=== PATIENT | male | born 1955 | race Two or more races ===

== ENCOUNTER 2017-06-12 11:16 | Emergency (ER) | payer OTHER ==
[~2017-06-12] VITALS: Ht 165.1 cm; Wt 74.8 kg
--- NOTE | 2017-06-12 11:40 | NUR ---
PT AMBULATORY TO ER BED 14. HERE FOR LOW BACK PAIN. DENIES ANY RECENT INJURY. ALSO C/O NOSEBLEED YESTERDAY. NO ACTIVE BLEEDING. VSS. AWAITING MD FLORES.
--- NOTE | 2017-06-12 12:03 | NUR ---
DR WHITAKER AT BEDSIDE FOR EVAL.
[2017-06-12 12:23] LABS: BASOPHILS % (AUTO) 0.5 % (0.0-2.0); EOSINOPHILS # (AUTO) 0.1 /CMM (0.0-0.7); EOSINOPHILS % (AUTO) 2.1 % (0.0-6.0); HEMATOCRIT 35 % (39-51); HEMOGLOBIN 11.7 g/dL (13.5-17.5); LYMPHOCYTES # (AUTO) 1.5 /CMM (0.8-4.8); LYMPHOCYTES % (AUTO) 20.7 % (20.0-44.0); MEAN CORPUSCULAR HEMOGLOBIN 30 PG (26.0-33.0); MEAN CORPUSCULAR HGB CONC 34 g/dl (31.0-36.0); MEAN CORPUSCULAR VOLUME 90 fL (80-96); MONOCYTES # (AUTO) 0.7 /CMM (0.1-1.30); MONOCYTES % (AUTO) 10.4 % (2.0-12.0); NEUTROPHILS # (AUTO) 4.7 /CMM (1.8-8.9); NEUTROPHILS % (AUTO) 66.3 % (43.0-81.0); PLATELET COUNT (AUTO) 280 /CMM (150-450); RED BLOOD CELL COUNT(AUTO) 3.86 MIL/uL (4.5-6.0)
[2017-06-12] MEDS ORDERED: ACETAMINOPHEN ES 500 MG TABLET PO ONE (12:30)
[2017-06-12 12:34] LABS: INR 0.89 (0.87-1.13)
[2017-06-12] MEDS ORDERED: ACETAMINOPHEN ES 500 MG TABLET ONE (13:13)
--- NOTE | 2017-06-12 13:22 | NUR ---
Patient discharged to home in stable condition. Written and verbal after care instructions given. Patient verbalizes understanding of instruction.
[2017-06-12 13:25] VITALS: BP 142/76
== END 2017-06-12 13:26 | disposition home or self-care (01) ==
LOC: ER 11:17
DX: R04.0 Epistaxis (principal); M54.5 Low back pain
CPT/HCPCS: 36415; 72110-TC; 85025-TC; 85730-TC

== ENCOUNTER 2024-07-04 16:13 | Emergency (ER) | payer OTHER ==
[~2024-07-04] VITALS: Ht 165.1 cm; Wt 74.4 kg
[2024-07-04] MEDS ORDERED: ASPIRIN 325 MG TABLET ONE (16:34)
[2024-07-04] MEDS: ASPIRIN 325 MG TABLET PO ONE (16:36)
[2024-07-04 16:50] LABS: BASOPHILS # (AUTO) 0.1 K/uL (0.0-0.2); BASOPHILS % (AUTO) 0.6 % (0.0-2.0); EOSINOPHILS # (AUTO) 0.1 K/uL (0.0-0.7); EOSINOPHILS % (AUTO) 0.8 % (0.0-6.0); HEMATOCRIT 47 % (39-51); HEMOGLOBIN 16.4 g/dL (13.5-17.5); LYMPHOCYTES % (AUTO) 19.1 % (20.0-44.0); MEAN CORPUSCULAR HEMOGLOBIN 35 PG (26.0-33.0); MEAN CORPUSCULAR HGB CONC 35 g/dl (31.0-36.0); MEAN CORPUSCULAR VOLUME 102 fL (80-96); MONOCYTES # (AUTO) 1.2 K/uL (0.1-1.30); NEUTROPHILS # (AUTO) 7.2 K/uL (1.8-8.9); NEUTROPHILS % (AUTO) 68.5 % (43.0-81.0); PLATELET COUNT (AUTO) 192 K/uL (150-450); RED BLOOD CELL COUNT(AUTO) 4.63 MIL/uL (4.5-6.0); WHITE BLOOD COUNT (AUTO) 10.5 K/uL (4.3-11.0)
[2024-07-04 16:53] LABS: CALCIUM, SERUM 9.5 mg/dL (8.5-10.1); CARBON DIOXIDE 29 mmol/L (21-32); CHLORIDE 95 mmol/L (98-107); CREATININE 1.3 mg/dL (0.6-1.3); GLUCOSE 248 mg/dL (74-106); POTASSIUM 3.5 mmol/L (3.5-5.1); SODIUM SERUM 134 mmol/L (136-145); UREA NITROGEN, BLOOD 11 mg/dL (7-18)
[2024-07-04] MEDS ORDERED: GLIP5TAB13 PO (17:08)
[2024-07-04] MEDS ORDERED: BLOO-668 IN (17:08)
[2024-07-04] MEDS ORDERED: METOPROLOL TARTRATE 50 MG TABLET PO SCH (18:00)
[2024-07-04] MEDS ORDERED: ASPIRIN 81 MG TAB.CHEW PO SCH (18:00)
[2024-07-04] MEDS ORDERED: PANTOPRAZOLE 40 MG TABLET.DR PO SCH (18:00)
[2024-07-04] MEDS ORDERED: ATORVASTATIN 40 MG TABLET PO SCH (18:00)
[2024-07-04] MEDS ORDERED: ENOXAPARIN SODIUM 80 MG/0.8 ML DISP.SYRIN SQ ONE (18:07)
[2024-07-04] MEDS: ENOXAPARIN SODIUM 80 MG/0.8 ML DISP.SYRIN SQ ONE (18:12)
[2024-07-04 18:41] VITALS: TEMP 98
[2024-07-04 22:00] VITALS: BP 112/65; O2SAT 97
[2024-07-05] MEDS ORDERED: ENOXAPARIN SODIUM 80 MG/0.8 ML DISP.SYRIN SQ SCH (09:00)
== END 2024-07-05 01:32 | disposition short-term general hospital (02) ==
LOC: ER 16:29
DX: I24.9 Acute ischemic heart disease, unspecified (principal); R07.9 Chest pain, unspecified; R06.03 Acute respiratory distress; R79.89 Other specified abnormal findings of blood chemistry; R94.31 Abnormal electrocardiogram [ECG] [EKG]; I11.9 Hypertensive heart disease without heart failure; E11.9 Type 2 diabetes mellitus without complications; Z87.891 Personal history of nicotine dependence
CPT/HCPCS: 99285; 71045; 99406; 96372; 93005 ×2; 85025; 80048; 36415; 84484 ×2; J1650